=== PATIENT | female | born 1980 | race Asian ===

== ENCOUNTER 2024-05-27 11:26 | Emergency (ER) | payer OTHER, SELFPAY ==
[2024-05-27 11:57] VITALS: BP 96/54
--- NOTE | 2024-05-27 12:00 | ED.GENMED ---
ED Provider Triage
<Graham Reyna PA-C - Last Filed: 05/27/24 12:00>
-
Patient seen by provider in Triage?: Seen in Triage
44-year-old female sent in by family doctor for evaluation of persistent upper abdominal pain with temperature as high as 101.8 with vomiting. The pain is persistent but worse with eating. No chest pain or shortness of breath. No prior abdominal
surgical history. She was trying Zofran at home without relief.
Patient does appear somewhat uncomfortable but vital signs are stable at triage. Start workup CBC CMP lipase. Will order ultrasound of abdomen given the upper abdominal discomfort
Received medical screening assessment by healthcare provider in triage. Further evaluation is necessary
History of Present Illness
<Graham Reyna PA-C - Last Filed: 05/27/24 12:00>
General
Chief Complaint: Abdominal Symptoms
Time Seen by Provider: 05/27/24 13:51
<Maria De Jesus Vasquez PA-C - Last Filed: 05/27/24 21:21>
General
Source: patient
Exam Limitations: none
Nursing documentation reviewed up to this point in time: agreed with
History of Present Illness
History of Present Illness:
44-year-old female past medical history of hypothyroidism, migraines presents emergency department today with concerns of diffuse lower abdominal pain, nausea and vomiting. This started 3 days ago. Patient states that the pain is intermittent, she
notes that it is worse with eating. Patient states that her brother is an ER physician and subscribe Zofran for her. Patient has been taking Zofran without relief and states that she has had multiple episodes of vomiting. She denies diarrhea.
Patient states he does episode where she felt febrile however was unsure what her temperature was. Patient denies any dark tarry stools, hematemesis. Patient denies any recent travel, any history of abdominal surgeries other than a tummy tuck and
.
Past History
<MATTHEW Lin Last Filed: 05/27/24 12:00>
Past History
ED Past Medical History: Asthma and Hypothyroidism
ED Past Surgical History:
Social History
Tobacco: Non-smoker
Alcohol: None
Drug: None
Personal:
Living: with family
Review of Systems
<MATTHEW Pinto Last Filed: 05/27/24 21:21>
Review of Systems
All Other Systems: ROS reviewed and negative except as documented in HPI and ROS
Phy Exam
<MATTHEW Pinto Last Filed: 05/27/24 21:21>
Physical Exam
Physical Exam:
General: Patient is well appearing and in no acute distress; non-toxic
Skin: Warm and dry, no rashes or lesions
Head: Normocephalic, atraumatic
Eyes: Sclera non-icteric. EOMs intact.
Cardiac: Regular rate and rhythm, no murmurs
Peripheral Vascular: No lower lower extremity swelling or edema
Pulm: Normal respiratory effort, no wheezes, rales, rhonchi
Abdomen: Left lower quadrant abdominal tenderness palpation, no palpable masses, no guarding, no rigidity, normoactive bowel sounds
Neuro: CN II-XII intact, no focal neurologic deficits.
Psychiatric: Appropriate mood and affect.
Course
<MATTHEW Lin Last Filed: 05/27/24 12:00>
Orders/Labs/Results
Orders:
Orders
05/27/24 11:57
Test Result ONCE
05/27/24 11:59
US Abdomen Complete/Upper Urgent
Comment:
Reason For Exam: epigastric pain
05/27/24 12:10
Complete Blood Count/With Diff Urgent
Comprehensive Metabolic Panel Urgent
HCG, Serum Qualitative Screen Urgent
Lipase Urgent
05/27/24 14:14
CT Abd/pelvis W Iv Cont Urgent
Comment:
Reason For Exam: LLQ abdominal pain
05/27/24 14:15
0.9% Sodium Chloride 1000 ml [Nss] 1,000 ml IV BOLUS
Diphenhydramine [Benadryl] 12.5 mg IV NOW STA
Ketorolac [Toradol] 15 mg IV NOW STA
Metoclopramide [Reglan] 10 mg IV NOW STA
Abnormal Lab Results
05/27/24
12:10
WBC 3.9 L 10^3/uL
(4.8-10.8)
RBC 4.10 L 10^6/uL
(4.20-5.40)
Hct 36.8 L %
(37.0-47.0)
Absolute Lymphs (auto) 1.1 L 10^3/uL
(1.2-3.4)
BUN 22 H mg/dl
(7-17)
05/27/24 12:10
05/27/24 12:10
Vital Signs
Initial and Last Documented VS:
Initial Vital Signs
Temp Pulse Resp BP Pulse Ox
98.9 F 93 20 96/54 100
05/27/24 11:57 05/27/24 11:57 05/27/24 11:57 05/27/24 11:57 05/27/24 11:57
Last Documented Vital Signs
Temp Pulse Resp BP Pulse Ox
98.9 F 85 20 103/63 99
05/27/24 11:57 05/27/24 16:43 05/27/24 11:57 05/27/24 16:43 05/27/24 16:43
<Maria De Jesus Vasquez PA-C - Last Filed: 05/27/24 21:21>
Orders/Labs/Results
Orders:
Orders
05/27/24 11:57
Test Result ONCE
05/27/24 11:59
US Abdomen Complete/Upper Urgent
Comment:
Reason For Exam: epigastric pain
05/27/24 12:10
Complete Blood Count/With Diff Urgent
Comprehensive Metabolic Panel Urgent
HCG, Serum Qualitative Screen Urgent
Lipase Urgent
05/27/24 14:14
CT Abd/pelvis W Iv Cont Urgent
Comment:
Reason For Exam: LLQ abdominal pain
05/27/24 14:15
0.9% Sodium Chloride 1000 ml [Nss] 1,000 ml IV BOLUS
Diphenhydramine [Benadryl] 12.5 mg IV NOW STA
Ketorolac [Toradol] 15 mg IV NOW STA
Metoclopramide [Reglan] 10 mg IV NOW STA
Abnormal Lab Results
05/27/24
12:10
WBC 3.9 L 10^3/uL
(4.8-10.8)
RBC 4.10 L 10^6/uL
(4.20-5.40)
Hct 36.8 L %
(37.0-47.0)
Absolute Lymphs (auto) 1.1 L 10^3/uL
(1.2-3.4)
BUN 22 H mg/dl
(7-17)
05/27/24 12:10
05/27/24 12:10
Vital Signs
Initial and Last Documented VS:
Initial Vital Signs
Temp Pulse Resp BP Pulse Ox
98.9 F 93 20 96/54 100
05/27/24 11:57 05/27/24 11:57 05/27/24 11:57 05/27/24 11:57 05/27/24 11:57
Last Documented Vital Signs
Temp Pulse Resp BP Pulse Ox
98.9 F 85 20 103/63 99
05/27/24 11:57 05/27/24 16:43 05/27/24 11:57 05/27/24 16:43 05/27/24 16:43
Aidenlt;Maria De Jesus Vasquez PA-C - Last Filed: 05/27/24 21:21>
MDM/Problems Addressed
Differential Diagnosis Includes:
ddx include gastroenteritis, diverticulitis, colitis, appendicitis,
MDM/Problems Addressed:
ED COURSE:
Patient initially sent for ultrasound of the abdomen to rule out cholecystitis, does not show any evidence of cholecystitis. Patient states that she gets a headache after taking Zofran started develop this currently in the emergency department.
She does have a history of migraines. Will treat with Toradol and Reglan and reassess. Considering patient still has pain had negative ultrasound, will send for CAT scan to rule out any acute intra-abdominal pathology including diverticulitis,
appendicitis, colitis etc.
NUMBER AND COMPLEXITY OF PROBLEMS ADDRESSED AT THE ENCOUNTER
� Chronic conditions affecting care: Hypothyroid, asthma
� Acute Exacerbation and/or Progression of Chronic Illness:
� Differential Diagnosis includes: See above
AMOUNT AND/OR COMPLEXITY OF DATA TO BE REVIEWED AND ANALYZED
� I performed an independent evaluation of and my interpretation is:
CT: No acute intra-abdominal abnormality, moderate stool burden noted
Other:
� Review of other/old records: Reviewed ER physician documentation from 07/27/2022, patient seen for applying pain, found to have likely musculoskeletal etiology of patient
� Prescriptions/Medications Considered but not given: Considered PPI to treat for possible gastritis however history not consistent with this, patient is no epigastric pain
� Further testing considered but not performed:n/a
RISK OF COMPLICATIONS AND/OR MORBIDITY OR MORTALITY OF PATIENT MANAGEMENT
� Discussion with other providers: ER attending Dr. Townsend
� Escalation of care including admission/observation vs risk of discharge considered:
44-year-old female with past medical history of hypothyroidism, asthma presents emergency department today with concerns abdominal pain. She is also nausea and vomiting associated with this as well. She went to her PCP today but they noted
abdominal tenderness on abdominal exam and sent her to the emergency department for further evaluation imaging. Patient ultimately had a CAT scan performed which showed a moderate stool burden but otherwise unremarkable, lipase normal, patient is
not , otherwise lab work unremarkable. Suspect possible gastroenteritis with consult for nausea and vomiting, pain suspect related to constipation. Discussed findings were discussed with patient, best follow-up with PCP, discussed
reassessment PCP in a week. GI referral discussed. Patient stable for discharge
<Maria De Jesus Vasquez PA-C - Last Filed: 05/27/24 21:21>
*Critical Care Note
Total Time (30-74mins, 75-104mins- exclusive of procedures): Not Applicable
ED Attending Note
<Graham Reyna PA-C - Last Filed: 05/27/24 12:00>
-
Portions of this chart may have been created with voice recognition software.� Occasional wrong word or��sound alike� substitutions may have occurred due to the inherent limitations of voice recognition software.
Discharge Plan
Departure
Patient Disposition: Home (Routine Discharge)
Date of Disposition: 05/27/24
Time of Disposition: 16:31
Patient with high blood pressure during this ER visit?: Yes
Condition: Good
Discharge Problem:
Abdominal pain, Nausea & vomiting
Instructions: Nausea and Vomiting, Adult (DC), Abdominal Pain
Prescriptions:
No Action
naproxen 500 mg tablet
500 mg PO BID PRN (Reason: pain) Qty: 20 0RF
Referrals:
Ramez Hassan MD [Active] - Call in 1-3 days for appt
Gino Bill MD [Family Provider] -
Activity Restrictions/Additional Instructions:
Please follow-up with your primary care provider in 1 week for reassessment.
PLEASE RETURN TO THE EMERGENCY DEPARTMENT SHOULD YOU DEVELOP FEVER OR CHILLS, CHEST PAIN, SHORTNESS OF BREATH, LIGHTHEADEDNESS, DIZZINESS, DARK TARRY STOOLS, PERSISTENT PAIN, ANY OTHER SIGNS OR SYMPTOMS WORRISOME TO YOU.
Interventions
Interventions:
*Risk Screen - Suicide Last Done: 05/27/24 11:57
*General Assessment Last Done: 05/27/24 11:57
*Neglect/Abuse Screening Last Done: 05/27/24 11:57
*ED COVID-19 Vaccine History Last Done: 05/27/24 13:45
*Nursing Disposition Last Done: 05/27/24 16:46
Discharge Date and Time
Discharge Date/Time: 05/27/24 16:52
Print Language: PERSIAN
[2024-05-27 12:19] LABS: % Basophils 0.8 % (0-2); % Eosinophils 2.1 % (0-6); % Lymphocytes 28.5 % (20.5-51.1); % Monocytes 7.8 % (1.7-9.3); % Neutrophils 60.8 % (42.2-75.2); Absolute Eosinophils 0.1 10^3/uL (0-0.7); Absolute Lymphocytes 1.1 10^3/uL (1.2-3.4); Absolute Monocytes 0.3 10^3/uL (0.1-0.6); Absolute Neutrophils 2.4 10^3/uL (1.4-6.5); Hematocrit 36.8 % (37.0-47.0); Hemoglobin 12.2 g/dL (12.0-16.0); Mean Corp Hgb Conc. 33.2 g/dL (33.0-37.0); Mean Corpuscular Hgb 29.8 pg (27.0-31.0); Mean Corpuscular Volume 89.8 fL (81.0-99.0); Mean Platelet Volume 10.3 fL (7.4-10.4); Nucleated Red Blood Cells % 0 %; Platelet Count 302 10^3/uL (130-400); Red Cell Dist. Width 11.9 % (11.5-14.5); White Blood Cell Count 3.9 10^3/uL (4.8-10.8)
[2024-05-27 12:36] LABS: HCG, Serum Qualitative Screen Negative
[2024-05-27 12:45] LABS: ALT (SGPT) 18 U/L (0-35); AST (SGOT) 23 U/L (14-36); Albumin 3.8 g/dl (3.5-5.0); Alkaline Phosphatase 68 U/L (38-126); Blood Urea Nitrogen 22 mg/dl (7-17); Calcium 8.7 mg/dl (8.4-10.2); Carbon Dioxide 27 mmol/L (22-30); Chloride 103 mmol/L (98-107); Glucose 94 mg/dl (70-99); Lipase 137 U/L (23-300); Potassium 3.9 mmol/L (3.5-5.1); Sodium 138 mmol/L (135-145); Total Bilirubin 0.2 mg/dl (0.2-1.3); Total Protein 6.5 g/dl (6.3-8.2); eGFR > 60.00
[2024-05-27] MEDS: NSS 1000 IV (14:28)
[2024-05-27] MEDS: TORADOL 15 MG IV (14:29)
[2024-05-27] MEDS: REGLAN 10 MG IV (14:29)
[2024-05-27] MEDS: BENADRYL 12.5 MG IV (14:29)
[2024-05-27 14:34] VITALS: BP 114/74
[2024-05-27 16:43] VITALS: BP 103/63
== END 2024-05-27 16:52 | disposition home or self-care (01) ==
LOC: EMR 11:26
PROVIDERS: Physician Assistant; EMERGENCY PHYSICIAN Student in an Organized Health Care Education/Training Program; FAMILY PHYSICIAN Family Medicine
DX: R11.2 Nausea with vomiting, unspecified (principal); R10.84 Generalized abdominal pain; E03.9 Hypothyroidism, unspecified; J45.909 Unspecified asthma, uncomplicated
CPT/HCPCS: 96374; 96375; 96361; 99284; 74177; 76700; 80053; 83690; 84703; 85025; Q9967